=== PATIENT | female | born 2000 | race Caucasian/White ===

== ENCOUNTER 2021-09-20 23:34 | Emergency (ER) | payer MEDICAID, SELFPAY ==
[2021-09-20 23:36] VITALS: BP 126/81; PULSE 70; RESP 16; TEMP 36.9; O2SAT 100; BMI 35.4
--- NOTE | 2021-09-20 23:55 | HMH.EDGENADL ---
ED Disposition Clinical Impression: Laceration of right heel Qualifiers: Encounter type: initial encounter Qualified Code(s): S91.311A - Laceration without foreign body, right foot, initial encounter Disposition: Home, Self-Care Condition on Discharge: Good Instructions: DI for Laceration Repair-Skin Glue, DI for Minor Laceration Additional Instructions: You have been evaluated for laceration, wound to the heel. Please keep the wound clean and dry. Use triple antibiotic ointment. Monitor for signs of infection like redness, drainage, swelling. Follow-up with your primary care doctor. Return to the emergency department for any new or worsening symptoms. Referrals: Provider,Referral, [Primary Care Provider] - Time of Disposition: :06 - Critical Care Critical Care Time: No Attestation: On 09/20/21, the high probability of a clinically significant, sudden or life threatening deterioration of the following system(s) required my full and direct attention, intervention and personal management. The time I documented below is in addition to time spent performing reported procedures but includes the following listed in this critical care notation. Medical Decision Making - Medical Records Medical records reviewed: Yes: I reviewed the patient's medical records. - Ted Inquiry Pt receiving controlled substance: No Vital Signs: 09/20/21 23:36 09/21/21 00:00 09/21/21 00:30 Temperature 98.5 F Temperature Source Oral Pulse Rate 71 90 Pulse Rate [Left Radial] 70 Respiratory Rate 16 Blood Pressure 98/67 L 111/85 Blood Pressure [Right Arm] 126/81 Blood Pressure Mean [Right Arm] 96 Blood Pressure Source Blood Pressure Source [Right Arm] Automatic Cuff Blood Pressure Position Blood Pressure Position [Right Arm] Sitting 02 Sat by Pulse Oximetry 100 93 L 100 Oxygen Delivery Method Room Air Room Air Room Air 09/21/21 01:07 09/21/21 01:08 Temperature 98.4 F 98.2 F Temperature Source Oral Pulse Rate 89 90 Pulse Rate [Left Radial] Respiratory Rate 18 18 Blood Pressure 116/80 118/86 Blood Pressure [Right Arm] Blood Pressure Mean [Right Arm] Blood Pressure Source Automatic Cuff Blood Pressure Source [Right Arm] Blood Pressure Position Sitting Blood Pressure Position [Right Arm] 02 Sat by Pulse Oximetry Oxygen Delivery Method Room Air Room Air Orders (Tests/Meds): ED MEDICATIONS Discontinued Medications Generic Name Dose Route Start Last Admin Trade Name Freq PRN Reason Stop Dose Admin Epinephrine HCl 1 mg 09/20/21 23:54 09/21/21 00:27 Epinephrine 1 Mg/Ml Ampul TOPICAL 09/20/21 23:55 1 mg ONCE ONE Administration Lidocaine HCl 1 ml 09/20/21 23:54 09/21/21 00:27 Lidocaine 4% Topical Soln 1ml TP 09/20/21 23:55 1 ml ONCE ONE Administration Tetanus/Reduced Diphtheria/Acell Pertussis 0.5 ml 09/20/21 23:54 09/21/21 00:27 Tet/Diphth/Pert-Adult 0.5ml Syringe IM 09/20/21 23:55 0.5 ml .ONCE ONE Administration Medical Decision Narrative: In summary this is a 21-year-old female, 6 months , presenting to the emergency department with wound to the right heel. Patient clinically stable on arrival. Vital signs within normal limits. Let gel applied. Wound copiously irrigated. She has a small flap of skin, but do not believe that sutures would help. Wound copiously irrigated. Repaired with Steri-Strip and Dermabond. Tetanus updated. Patient counseled on wound care management. On signs of infection and return precautions. Stable for discharge. General Adult HPI - General Chief complaint: Extremity Injury, Lower Stated complaint: A0 09/20/21 2152 gash on right foot Time Seen by Provider: 09/20/21 23:55 Mode of Arrival: Ambulatory Limitations: No Limitations Description of Symptoms (Recalled from ER Triage Doc. by RN): LACERATION TO RIGHT HEEL. PT STATES HER TETANUS IS NOT UP TO DATE. - History of Present Illness HPI narr
--- NOTE | 2021-09-20 23:56 | PC.NURSE ---
Wound on pt right heel cleaned with hibiclens and sterile water per Anne Stanley
[2021-09-21] VITALS: BP 98/67; PULSE 71; O2SAT 93
[2021-09-21 00:30] VITALS: BP 111/85; PULSE 90; O2SAT 100
[2021-09-21 01:07] VITALS: BP 116/80; PULSE 89; RESP 18; TEMP 36.9; O2SAT 99
[2021-09-21 01:08] VITALS: BP 118/86; PULSE 90; RESP 18; TEMP 36.8; O2SAT 99
== END 2021-09-21 01:15 | disposition home or self-care (01) ==
PROVIDERS: Emergency Provider Emergency Medicine
DX: S91.311A Laceration without foreign body, right foot, initial encounter (principal); W45.8XXA Other foreign body or object entering through skin, initial encounter; W22.8XXA Striking against or struck by other objects, initial encounter; Y92.018 Other place in single-family (private) house as the place of occurrence of the external cause
CPT/HCPCS: 90471; 90715; 99282

== ENCOUNTER 2023-05-05 12:54 | Emergency (ER) | payer MEDICAID, SELFPAY ==
[2023-05-05 13:15] VITALS: BP 117/56; PULSE 72; RESP 20; TEMP 36.8; O2SAT 100; BMI 32.9
--- NOTE | 2023-05-05 13:28 | ED_ITS ---
Discharge Plan Prescriptions Prescriptions: No Action cyclobenzaprine 10 MG tablet 10 mg PO TIDP PRN (Reason: BACK PAIN) 21-iron fu-folic acid 1 EACH tablet 1 tab PO DAILY Referrals Follow up/Referrals: Provider,Referral, MD [Primary Care Provider] - See instructions Activity Restrictions/Add. Instructions Additional Instructions/Restrictions: Your test results should be back and available on the [facility] in the next 3-5 days NO intercourse until results back and negative If your results are positive then you will need to follow up immediately to get treatment Clinical Impressions Clinical Impression: Exposure to STD Instructions Patient Instructions: Facts About Sexually Transmitted Infections, How to Detect and Treat STDs, Chlamydia: The Silent STD Discharge ED Provider: Emily Dumont [facility] [place] HPI General Stated complaint: STD test Mode of Arrival: Ambulatory Source of Information: Patient Limitations: No Limitations Time Seen by Provider: 05/05/23 13:34 Description of Symptoms (Recalled from Triage Doc. by RN): PATIENT STATES THAT HER SIGNIFICANT OTHER IS EXPERIENCING POSSIBLE STD SYMPTOMS AND PATIENT IS WANTING TO GET TESTED. SHE STATES SHE HAD POSSIBLE EXPOSURE TO CHLAMYDIA APPROX 1 MONTH AGO, BUT IS NOT HAVING ANY STYMPOMS. HEENT Symptoms (Recalled from RN notes): No Resp Symptoms (Recalled from RN notes): No Skin Symptoms (Recalled from RN notes): No MS Symptoms (Recalled from RN notes): No Functional Status (Recalled from RN notes): WNL History of Present Illness Provider Complaint: Patient states that she was possibly exposed to Chlamydia about a year ago and was treated and slept with him again about month ago States that she is not having any symptoms but her baby dadjoe is and he wanted her to come and get checked Related Data Home Medications Medication Instructions Recorded Confirmed cyclobenzaprine 10 mg tablet 10 mg PO TIDP PRN BACK PAIN 09/20/21 09/20/21 vits,calcium 21-iron fum 1 tab PO DAILY Supplement 09/20/21 09/20/21 14 mg iron-folic acid 400 mcg tablet Allergies Allergy/AdvReac Type Severity Reaction Status Date / Time amoxicillin Allergy Verified 05/05/23 13:26 Worker's Comp Is this a Worker's Comp case?: No [facility] Disclaimer: The information contained in this section may have been updated after the patient was seen, as this information can be updated by other users. Medical History (Updated 05/05/23 @ 13:37 by Emily Dumont APRN) Depression Anxiety Urinary tract infection Diabetes mellitus, type 2 Asthma Hypertension Surgical History (Updated 05/05/23 @ 13:27 by Priscilla Box RN) History of tonsillectomy History of section History of cholecystectomy Social History Smoking Status: Unknown if ever smoked alcohol intake: never current occupational status: employed Travel in the last 8 weeks: None ROS Obtained: Yes All systems reviewed & no additional complaints except as documented and Yes Systems reviewed as appropriate & no additional complaints except as documented Constitutional Constitutional: Reports system reviewed and no additional complaints, except as documented Cardiovascular Cardiovascular: Reports system reviewed and no additional complaints, except as documented and Reports as per HPI Respiratory Respiratory: Reports system reviewed and no additional complaints, except as documented and Reports as per HPI Gastrointestinal Gastrointestingal: Reports system reviewed and no additional complaints, except as documented and as per HPI Genitourinary Female Genitourinary: Reports system reviewed and no additional complaints, except as documented, Reports as per HPI, Denies vaginal discharge, Denies vaginal dryness and Denies vaginal pruritus Physical Exam General General appearance: alert and in no apparent distress ENT ENT exam: Present mucous membranes moist Respiratory Respiratory exam: Present normal lung sounds bilaterally; Absent respiratory distress or wheezes Cardiovascular Cardiovascular exam: Present regular rate, normal rhythm and normal heart sounds Abdominal Exam Abdominal exam: Present soft and normal bowel sounds; Absent distention or tenderness Neurological Exam Neurological exam: Present alert, oriented X3 and normal gait Medical Decision Making Ted Inquiry Pt receiving controlled substance: No Ted was queried for this patient: No Vital Signs: 05/05/23 13:15 Temperature 98.2 F Temperature Source Oral Pulse Rate [Left Brachial] 72 Respiratory Rate 20 Blood Pressure [Left Arm] 117/56 L Blood Pressure Mean [Left Arm] 76 Blood Pressure Source [Left Arm] Automatic Cuff Blood Pressure Position [Left Arm] Sitting 02 Sat by Pulse Oximetry 100 Oxygen Delivery Method Room Air Orders (Tests/Meds): ORDERS Category Date Time Status UA [Urinalysis and Microscopic] Stat Lab 05/05/23 13:26 Ordered
[2023-05-05 13:34] LABS: Microscopic, Urine URINE MICROSCOPIC (MICROSCOPIC)
[2023-05-05 13:37] VITALS: BP 117/56; PULSE 72; RESP 20; TEMP 36.8; O2SAT 100
[2023-05-05 13:40] LABS: Appearance,Urine CLEAR (Clear); Bilirubin,Urine Negative (Negative); Blood, Urine Negative (Negative); Color,Urine YELLOW (Yellow); Glucose,Urine (UA) Negative (Negative); Ketones,Urine Negative (Negative); Leukocyte Esterase,Urine Negative (Negative); Nitrate,Urine Negative (Negative); Protein,Urine Negative (Negative); Specific Gravity, Urine 1.025 (1.005-1.030); Urobilinogen,Urine 0.2 EU/dl (0.2)
[2023-05-05 14:47] LABS: WBC,Urine Occasional #/hpf (0-3)
[2023-05-09 05:49] LABS: Neisseria gonorrhoeae, NAA Negative (Negative)
== END 2023-05-05 13:41 | disposition home or self-care (01) ==
PROVIDERS: Emergency Provider Nurse Practitioner
DX: Z20.2 Contact with and (suspected) exposure to infections with a predominantly sexual mode of transmission (principal); F32.A Depression, unspecified; F41.9 Anxiety disorder, unspecified; E11.9 Type 2 diabetes mellitus without complications; J45.909 Unspecified asthma, uncomplicated; I10 Essential (primary) hypertension
CPT/HCPCS: 81001; 87491; 87591; 99203; 99212; G0463

== ENCOUNTER 2023-07-08 11:08 | Emergency (ER) | payer MEDICAID, SELFPAY ==
[2023-07-08 11:10] VITALS: BP 130/77; PULSE 68; RESP 19; TEMP 36.8; O2SAT 96; BMI 33.5
--- NOTE | 2023-07-08 12:03 | EXP.UTC ---
Discharge Plan Disposition Patient Disposition: Home, Self-Care Condition: Good Prescriptions Prescriptions: New ibuprofen [IBU] 800 mg tablet 800 mg PO Q8HP PRN (Reason: Moderate Pain) Qty: 30 0RF cephalexin 500 mg capsule 500 mg PO QID Qty: 40 0RF No Action Nextstellis 3 mg- 14.2 mg (28) tablet 1 tab PO DAILY Referrals Follow up/Referrals: Provider,Referral, MD [Primary Care Provider] - See instructions Activity Restrictions/Add. Instructions Additional Instructions/Restrictions: Take the medications as directed. Take the ibuprofen for pain. Follow up with your primary care physician. Follow up with your dentist as soon as you can get in to be seen. GO TO THE ER FOR ANY WORSENING SYMPTOMS OR CONCERNS Clinical Impressions Clinical Impression: Abscessed tooth, Pain, dental Instructions Patient Instructions: Tooth Abscess, DI for Tooth Abscess Discharge ED Provider: Christopher Zuluaga [facility] [place] HPI General Stated complaint: left side jaw pain, headache/earache Time Seen by Provider: 07/08/23 12:03 Related Data Home Medications Medication Instructions Recorded Confirmed drospirenone 3 mg-estetrol 14.2 mg 1 tab PO DAILY 07/08/23 07/08/23 (28) tablet (Nextstellis) Previous Rx's Medication Instructions Recorded cephalexin 500 mg capsule 500 mg PO QID #40 caps 07/08/23 ibuprofen 800 mg tablet (IBU) 800 mg PO Q8HP PRN Moderate Pain 07/08/23 #30 tabs Allergies Allergy/AdvReac Type Severity Reaction Status Date / Time amoxicillin Allergy Verified 07/08/23 12:10 [facility] Disclaimer: The information contained in this section may have been updated after the patient was seen, as this information can be updated by other users. Medical History (Updated 07/08/23 @ 12:33 by Christopher Zuluaga APRN) Depression Anxiety Urinary tract infection Diabetes mellitus, type 2 Asthma Hypertension Surgical History History of tonsillectomy History of section History of cholecystectomy Social History Smoking Status: Unknown if ever smoked alcohol intake: never current occupational status: employed Travel in the last 8 weeks: None ROS Obtained: Yes All systems reviewed & no additional complaints except as documented Constitutional Constitutional: Denies chills and Denies fever(s) Eyes Eyes: Denies eye discharge ENT Ears, Nose, Mouth, and Throat: Denies dizziness, Denies otalgia and Denies sore throat Cardiovascular Cardiovascular: Denies chest pain Respiratory Respiratory: Denies shortness of breath, Denies chest congestion, Denies cough, Denies stridor and Denies wheezing Gastrointestinal Gastrointestingal: Denies nausea or vomiting Musculoskeletal Musculoskeletal: Reports system reviewed and no additional complaints, except as documented and Denies arthralgias Integumentary/Breasts Skin/Breast: Denies rash Neurologic Neurologic: Denies dizziness and Denies paresthesias Allergic/Immunologic Allergic/Immunologic: Denies wheezing Physical Exam General General appearance: alert and in no apparent distress Head Head exam: atraumatic, normocephalic and normal inspection Eye Eye exam: Present normal appearance, PERRL and EOMI ENT ENT exam: Present mucous membranes moist, TM's normal bilaterally and normal external ear exam Expanded ENT Exam Mouth exam: Present normal external inspection; Absent drooling Teeth exam: Present dental caries, fractured tooth #, dental tenderness # and gingival swelling Throat exam: Present normal inspection Neck Neck exam: Present normal inspection, full ROM and trachea midline; Absent meningismus or lymphadenopathy Chest Chest inspection: Present normal inspection and symmetric chest wall rise; Absent tenderness Respiratory Respiratory exam: Present normal lung sounds bilaterally; Absent respiratory distress Cardiovascular Cardiovascular exam: Present regular rate and normal rhythm; Absent JVD Abdominal Exam Abdominal exam: Present soft and normal bowel sounds; Absent distention, tenderness or guarding Extremities Exam Extremities exam: Present normal inspection, full ROM and normal capillary refill; Absent calf tenderness Back Exam Back exam: Present normal inspection; Absent tenderness Neurological Exam Neurological exam: Present alert and oriented X3 Psychiatric Psychiatric exam: Present normal affect and normal mood Skin Skin exam: Present warm, dry, intact and normal color Lymphatic Lymphatic Findings: no adenopathy Medical Decision Making Medical Records Medical records reviewed: No I reviewed the patient's medical records. Ted Inquiry Pt receiving controlled substance: No
[2023-07-08 12:48] VITALS: BP 130/77; PULSE 68; RESP 19; TEMP 36.8; O2SAT 96
== END 2023-07-08 12:48 | disposition home or self-care (01) ==
PROVIDERS: Emergency Provider Nurse Practitioner Family
DX: K04.7 Periapical abscess without sinus (principal); R68.84 Jaw pain; R51.9 Headache, unspecified; H92.02 Otalgia, left ear
CPT/HCPCS: 99212; 99214; G0463

== ENCOUNTER 2024-03-31 20:07 | Emergency (ER) | payer MEDICAID, SELFPAY ==
[2024-03-31 20:10] VITALS: BP 100/83; PULSE 83; RESP 16; TEMP 36.9; O2SAT 100; BMI 35.4
[2024-03-31] MEDS: LIDOCAINE 2% VISCOUS SOL 15ML UDC 15 ML PO (20:26)
[2024-03-31] MEDS: CLINDAMYCIN 150MG CAPSULE 300 MG PO (20:27)
--- NOTE | 2024-03-31 20:33 | PC.NURSE ---
Patient is ready to D/C; waiting on registration to finish registering patient.
[2024-03-31 20:34] VITALS: BP 132/92; PULSE 70; RESP 16; TEMP 36.8; O2SAT 99
--- NOTE | 2024-03-31 21:41 | HMH.EDGENADL ---
Discharge Plan Disposition Patient Disposition: Home, Self-Care Condition: Good Prescriptions Prescriptions: New clindamycin HCl 300 mg capsule 300 mg PO Q8H 10 Days Qty: 30 0RF No Action Nextstellis 3 mg- 14.2 mg (28) tablet 1 tab PO DAILY ibuprofen [IBU] 800 mg tablet 800 mg PO Q8HP PRN (Reason: Moderate Pain) Qty: 30 0RF cephalexin 500 mg capsule 500 mg PO QID Qty: 40 0RF Referrals Follow up/Referrals: Provider,Referral, [Primary Care Provider] - See instructions Activity Restrictions/Add. Instructions Additional Instructions/Restrictions: You were evaluated in the emergency department today. Please follow-up right away with a dentist. supervisor customer complaint service your prescription for antibiotic at the pharmacy and take the full course as prescribed. Take Tylenol and ibuprofen every 4-6 hours as needed for pain. Return to the emergency department for new or worsening symptoms. Clinical Impressions Clinical Impression: Pain, dental Stand Alone Forms Stand Alone Forms: Work/School Release Instructions Patient Instructions: DI for Dental Pain Print Language Print Language: Italian Discharge ED Provider: Shahida Hope General Adult HPI General Chief complaint: Dental/Oral Stated complaint: left tooth pain Time Seen by Provider: 03/31/24 20:16 Mode of Arrival: Ambulatory Source of Information: Patient Limitations: No Limitations Description of Symptoms (Recalled from ER Triage Doc. by RN): Patient presents with left sided tooth pain. States it has been hurting for two days. Patient states, I just want antibiotics. I know I need to see a dentist. Complains of multiple teeth to the left mouth. Patient states she has been taking Ibuprofen with no success. History of Present Illness HPI narrative: This patient is a 24-year-old female presented to the emergency department for evaluation with concern for left-sided dental pain. Patient states that she has been hurting for 2 days and is awaiting outpatient follow-up with a dentist, as she is trying to find one that accepts well care. She denies any fevers, drooling, trismus, stridor, difficulty breathing, or other concerns. No fevers or systemic symptoms. Related Data Home Medications ?Medication ?Instructions ?Recorded ?Confirmed drospirenone 3 mg-estetrol 14.2 mg 1 tab PO DAILY 07/08/23 07/08/23 (28) tablet (Nextstellis) Previous Rx's ?Medication ?Instructions ?Recorded cephalexin 500 mg capsule 500 mg PO QID #40 caps 07/08/23 ibuprofen 800 mg tablet (IBU) 800 mg PO Q8HP PRN Moderate Pain 07/08/23 #30 tabs clindamycin HCl 300 mg capsule 300 mg PO Q8H 10 days #30 caps 03/31/24 Allergies Allergy/AdvReac Type Severity Reaction Status Date / Time amoxicillin Allergy Verified 07/08/23 12:10 [facility] Disclaimer: The information contained in this section may have been updated after the patient was seen, as this information can be updated by other users. Medical History Depression Anxiety Urinary tract infection Diabetes mellitus, type 2 Asthma Hypertension Surgical History History of tonsillectomy History of section History of cholecystectomy Social History Smoking Status: Never smoker alcohol intake: never current occupational status: employed Travel in the last 8 weeks: None Have you lived/traveled outside [place] in past 30 days?: No Contact w/someone who lives/traveled outside [place] past 30 days?: No Exposure to someone with infectious disease in past 14 days?: No Do you have a fever (greater than 100.4 F or 38 C)?: No Have you tested positive for COVID-19: No Exposed to someone with COVID-19 in past 14 days?: No Do you have a sore throat?: No Do you have a cough?: No Do you have any weakness?: No Do you have any diarrhea?: No Are you experiencing any unusual bleeding?: No Do you have any muscle aches/pain?: No Do you have any abdominal pain?: No Are you experiencing loss of taste or smell?: No Other Medical History Have you received the Flu Vaccine for this season: No Have you received the Pneumonia Vaccine: No ROS Obtained: Yes All systems reviewed & no additional complaints except as documented Physical Exam General General appearance: alert and in no apparent distress Head Head exam: atraumatic and normocephalic Eye Eye exam: Present normal appearance, PERRL and EOMI ENT ENT exam: Present mucous membranes moist, normal external ear exam and other (Multiple dental caries, tenderness palpation of the left upper teeth) Neck Neck exam: Present normal inspection, full ROM and trachea midline; Absent tenderness Chest Chest inspection: Present normal inspection and symmetric chest wall rise; Absent tenderness Respiratory Respiratory exam: Present normal lung sounds bilaterally; Absent respiratory distress, wheezes, stridor or accessory muscle use Cardiovascular Cardiovascular exam: Present regular rate and normal rhythm Abdominal Exam Abdominal exam: Present soft; Absent distention, tenderness or guarding Extremities Exam Extremities exam: Present normal inspection, full ROM and normal capillary refill; Absent tenderness or edema Back Exam Back exam: Present normal inspection and full ROM; Absent tenderness Neurological Exam Neurological exam: Present alert, oriented X3, CN II-XII intact and normal gait; Absent motor sensory deficit Psychiatric Psychiatric exam: Present normal affect and normal mood Skin Skin exam: Present warm and dry Medical Decision Making Medical Records Medical records reviewed: Yes I reviewed the patient's medical records. Screening: Per USPSTF and CDC recommendations, given the prevalence of disease in our region, it is our hospital?s policy to screen for HIV and viral Hepatitis for all patients aged 18 and over and those with ongoing risk factors. Ted Inquiry Pt receiving controlled substance: No Vital Signs: 03/31/24 20:10 03/31/24 20:34 Temperature 98.5 F 98.2 F Temperature Source Oral Oral Pulse Rate 70 Pulse Rate [Radial] 83 Respiratory Rate 16 16 Blood Pressure 132/92 H Blood Pressure [R Arm] 100/83 L Blood Pressure Mean [R Arm] 88 Blood Pressure Source Automatic Cuff Blood Pressure Source [R Arm] Automatic Cuff Blood Pressure Position Sitting 02 Sat by Pulse Oximetry 100 Oxygen Delivery Method Room Air Room Air Lab Data Lab results reviewed: Yes I reviewed the patient's lab results. Orders (Tests/Meds): ED MEDICATIONS Discontinued Medications Generic Name Dose Route Start Last Admin Trade Name Freq PRN Reason Stop Dose Admin Clindamycin HCl 300 mg 03/31/24 20:17 03/31/24 20:27 Clindamycin 150mg Capsule PO 03/31/24 20:18 300 mg ONCE ONE Administration Lidocaine HCl 15 ml 03/31/24 20:17 03/31/24 20:26 Lidocaine 2% Viscous Ivania 15ml Udc PO 03/31/24 20:18 15 ml ONCE ONE Administration Medical Decision Narrative: In summary, this patient is a 24-year-old female presenting to the Emergency Department for evaluation of dental pain. Differential diagnoses considered include but are not limited to dental caries, dental fracture, dental abscess, facial cellulitis. Ruling out the most morbid conditions drove assessment. On exam, the patient is very well-appearing with normal vital signs. No drooling, trismus, stridor, fevers, or other systemic symptoms that would suggest severe infection. She does not have any significant amount of facial swelling. Ultimately, feel she is appropriate for discharge with prescription for clindamycin given amoxicillin allergy. She was also given dental balls. She was given strict return precautions and was discharged with instructions for close follow-up with dentistry. Strict return precautions were given. Critical Care Critical Care Time Critical Care Time: No
== END 2024-03-31 20:40 | disposition home or self-care (01) ==
LOC: ER 20:39
PROVIDERS: Emergency Provider Emergency Medicine
DX: K08.89 Other specified disorders of teeth and supporting structures (principal)
CPT/HCPCS: 99283